=== PATIENT | female | born 1990 | race Two or more races ===

== ENCOUNTER → 2018-09-10 | Outpatient (CLI) | payer BC | END | disposition home or self-care (01) | LOC: LAB 18:36 | PROVIDERS: ATTEND Internal Medicine | DX: Z11.1 Encounter for screening for respiratory tuberculosis (principal) | CPT/HCPCS: 86480 ==

== ENCOUNTER 2019-02-08 05:29 | Emergency (ER) | payer BC, OTHER ==
[~2019-02-08] VITALS: Ht 154.9 cm; Wt 83.5 kg
[2019-02-08 05:34] VITALS: BP 127/89; PULSE 76; RESP 18; Ht 154.9 cm; Wt 83.5 kg
--- NOTE | 2019-02-08 06:11 | ERD ---
ER Documentation Chief Complaint Chief Complaint NEEDLE STICK, CONTAMINATED NEEDLE HPI 28-year-old female with no significant past history presents for sick injury while at work today. 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 Stick was on the dorsal side of the right thumb. She states that there was some blood over her thumb so she did penetrate her skin. HIV and hepatitis status of the patient is unknown however it is being check currently. Patient did wash her needlestick injury area with soap and water. No other modifying factors noted, no treatments tried. Home medications: none ROS All systems reviewed and are negative except as per history of present illness. Allergies Allergies: Coded Allergies: No Known Allergy (Unverified , 02/08/19) PMhx/Soc Medical and Surgical Hx: pt denies Medical Hx, pt denies Surgical Hx Hx Alcohol Use: No Hx Substance Use: No Hx Tobacco Use: No Smoking Status: Never smoker FmHx Family History: No coronary disease Physical Exam Vitals Vital Signs Date Temp Pulse Resp B/P (MAP) Pulse Ox O2 O2 Flow FiO2 Time Delivery Rate 02/08/19 97.0 76 18 127/89 100 05:34 (102) Physical Exam Const: No acute distress Resp: Clear to auscultation bilaterally Cardio: Regular rate and rhythm, no murmurs Skin: small needle stick arlene noted over the right thumb ventral side, no activity bleeding, no erythema, no warmth Ext: No cyanosis, or edema Neur: Awake and alert Psych: Normal Mood and Affect Procedures/MDM Medical Decision Making: Patient presents with needlestick injury while at work at the hospital. Patient appeared well on physical exam. There is a small needle stick area noted over the right thumb ventral side. No active bleeding was noted. No signs of erythema. Patient is neurovascular intact Patient was checked for hepatitis and HIV Patient has to leave for work. She was advised to follow up with her PCP for lab results. Also advised to follow up with occupational health for repeat labs if indicated. Patient advised to follow up with PCP in 1-2 days. Patient advised to return to ED for new or worsening symptoms. Patient stable on discharge from the ED. Disclaimer: Inadvertent spelling and grammatical errors are likely due to EHR/dictation software use and do not reflect on the overall quality of patient care. Also, please note that the electronic time recorded on this note does not necessarily reflect the actual time of the patient encounter. Departure Diagnosis: Primary Impression: Needlestick injury accident Condition: Fair Patient Instructions: Standard Precautions: [place] Referrals: [facility] YOU HAVE RECEIVED A MEDICAL SCREENING EXAM AND THE RESULTS INDICATE THAT YOU DO NOT HAVE A CONDITION THAT REQUIRES URGENT TREATMENT IN THE EMERGENCY DEPARTMENT. FURTHER EVALUATION AND TREATMENT OF YOUR CONDITION CAN WAIT UNTIL YOU ARE SEEN IN YOUR DOCTORS OFFICE WITHIN THE NEXT 1-2 DAYS. IT IS YOUR RESPONSIBILITY TO MAKE AN APPOINTMENT FOR FOLOW-UP CARE. IF YOU HAVE A PRIMARY DOCTOR --you should call your primary doctor and schedule an appointment IF YOU DO NOT HAVE A PRIMARY DOCTOR YOU CAN CALL OUR PHYSICIAN REFERRAL HOTLINE AT IF YOU CAN NOT AFFORD TO SEE A PHYSICIAN YOU CAN CHOSE FROM THE FOLLOWING [facility] [address] [facility] [facility] [address] [facility] [address] [facility] [facility] [address] [facility] [facility]. [facility] [address] [facility]. [facility]. [address] Additional Instructions: Call your primary care doctor TOMORROW for an appointment during the next 1-2 days.See the doctor sooner or return here if your condition worsens before your appointment time. Follow up with PCP for lab results. Need to follow up with occupational health for repeat blood testing. SUJIT CHUA DO Feb 08, 2019 06:11
== END 2019-02-08 06:10 | disposition home or self-care (01) ==
LOC: FTE 05:29
DX: S61.031A Puncture wound without foreign body of right thumb without damage to nail, initial encounter (principal); W46.0XXA Contact with hypodermic needle, initial encounter; Y92.239 Unspecified place in hospital as the place of occurrence of the external cause
CPT/HCPCS: 36415; 86703; 86704; 86709; 86803; 87340; 87536; 99283